=== PATIENT | female | born 1935 | race Two or more races ===

== ENCOUNTER 2018-03-06 12:53 | Inpatient (IN) | payer OTHER ==
[~2018-03-06] VITALS: Ht 157.5 cm; Wt 47.0 kg
[2018-03-06 13:44] LABS: microscopic required? YES; urine erythrocyte TRACE (NEGATIVE)
[2018-03-06 13:45] LABS: BASOPHIL % 0.3 % (0-2); PLATELET COUNT 364 x10^3mcL (130-400); RED CELL DISTRIBUTION WIDTH 12.2 % (11.5-14.5)
[2018-03-06 14:00] LABS: ALBUMIN 3.5 g/dL (3.4-5.0); ALKALINE PHOSPHATASE 87 U/L (46-116); ALT/SGPT 14 U/L (14-59); AST/SGOT 22 U/L (15-37); BILIRUBIN TOTAL 0.8 mg/dL (0.20-1.00); CALCIUM 8.4 mg/dL (8.5-10.1); CARBON DIOXIDE 20.5 mmol/L (21-32); CHLORIDE SERUM 83 mmol/L (98-107); CREATININE SERUM 0.8 mg/dL (0.6-1.0); GLUCOSE SERUM 123 mg/dL (74-106); POTASSIUM SERUM 4.1 mmol/L (3.5-5.1); TOTAL PROTEIN, SERUM 7.8 g/dL (6.4-8.2)
[2018-03-06 14:01] LABS: SODIUM SERUM 115 mmol/L (136-145)
[2018-03-06 14:08] LABS: FREE T4 1.39 ng/dL (0.76-1.46); FREE THYROXINE INDEX 3.3 ug/dL (1.4-4.5); T3 TOTAL 0.78 ng/mL; T4(THYROXINE) 8.9 ug/dL (4.7-13.3)
[2018-03-06] MEDS ORDERED: LOSARTAN POTASS25 M1 PO (16:19)
[2018-03-06] MEDS ORDERED: LEVOTHYROXIN0.025 M2 PO (16:19)
[2018-03-06] MEDS ORDERED: LEVOTHYROXINE0.05 M2 GT (16:19)
[2018-03-06 18:16] VITALS: BP 166/76
[2018-03-06 18:38] VITALS: BP 118/64
[2018-03-06 21:02] LABS: CALCIUM 7.7 mg/dL (8.5-10.1); CARBON DIOXIDE 19.7 mmol/L (21-32); CHLORIDE SERUM 87 mmol/L (98-107); CREATININE SERUM 0.7 mg/dL (0.6-1.0); GLUCOSE SERUM 112 mg/dL (74-106); POTASSIUM SERUM 3.7 mmol/L (3.5-5.1)
[2018-03-06 21:07] LABS: SODIUM SERUM 115 mmol/L (136-145)
[2018-03-06 21:56] VITALS: BP 145/49
[2018-03-07 03:11] LABS: CALCIUM 7.4 mg/dL (8.5-10.1); CARBON DIOXIDE 22.6 mmol/L (21-32); CHLORIDE SERUM 91 mmol/L (98-107); CREATININE SERUM 0.7 mg/dL (0.6-1.0); GLUCOSE SERUM 114 mg/dL (74-106); POTASSIUM SERUM 3.5 mmol/L (3.5-5.1)
[2018-03-07 03:21] LABS: SODIUM SERUM 118 mmol/L (136-145)
[2018-03-07 05:40] VITALS: BP 125/54
[2018-03-07 06:31] LABS: BASOPHIL % 0.3 % (0-2); CALCIUM 8.1 mg/dL (8.5-10.1); CARBON DIOXIDE 18.9 mmol/L (21-32); CHLORIDE SERUM 94 mmol/L (98-107); CREATININE SERUM 0.7 mg/dL (0.6-1.0); GLUCOSE SERUM 91 mg/dL (74-106); MAGNESIUM 1.9 mg/dL (1.8-2.4); PLATELET COUNT 319 x10^3mcL (130-400); POTASSIUM SERUM 3.6 mmol/L (3.5-5.1); RED CELL DISTRIBUTION WIDTH 12.5 % (11.5-14.5)
[2018-03-07 06:45] LABS: SODIUM SERUM 124 mmol/L (136-145)
[2018-03-07 09:37] LABS: CARBON DIOXIDE 20.6 mmol/L (21-32); CHLORIDE SERUM 93 mmol/L (98-107); CREATININE SERUM 0.8 mg/dL (0.6-1.0); GLUCOSE SERUM 135 mg/dL (74-106); POTASSIUM SERUM 3.6 mmol/L (3.5-5.1)
[2018-03-07 09:38] VITALS: BP 133/75
[2018-03-07 09:56] LABS: SODIUM SERUM 122 mmol/L (136-145)
[2018-03-07 13:45] VITALS: BP 147/69
[2018-03-07 17:21] VITALS: BP 146/62
[2018-03-07 21:20] VITALS: BP 139/56
[2018-03-08 05:49] VITALS: BP 156/83
[2018-03-08 06:43] LABS: BASOPHIL % 0.5 % (0-2); PLATELET COUNT 321 x10^3mcL (130-400); RED CELL DISTRIBUTION WIDTH 12.7 % (11.5-14.5)
[2018-03-08 07:08] LABS: CHLORIDE SERUM 98 mmol/L (98-107); CREATININE SERUM 0.8 mg/dL (0.6-1.0); GLUCOSE SERUM 98 mg/dL (74-106); MAGNESIUM 2.2 mg/dL (1.8-2.4); POTASSIUM SERUM 3.9 mmol/L (3.5-5.1); SODIUM SERUM 128 mmol/L (136-145)
[2018-03-08 10:00] VITALS: BP 155/83
[2018-03-08 10:59] VITALS: BP 146/80
[2018-03-08 13:27] VITALS: BP 155/77
[2018-03-08] MEDS ORDERED: CEFDINIR300 M1 PO (13:42)
[2018-03-08] MEDS ORDERED: SOD1 PO (13:42)
[2018-03-08] MEDS ORDERED: NITROFURANTOIN50 MG PO (13:59)
[2018-03-08 14:00] VITALS: BP 155/77
== END 2018-03-08 15:33 | disposition home health service (06) | DRG 640 ==
LOC: ED 12:53 → DU 15:46
PROVIDERS: Emergency Medicine; Internal Medicine Nephrology; Internal Medicine Pulmonary Disease
DX: E87.1 Hypo-osmolality and hyponatremia (principal); G93.41 Metabolic encephalopathy; N39.0 Urinary tract infection, site not specified; I10 Essential (primary) hypertension; E03.9 Hypothyroidism, unspecified; E86.1 Hypovolemia; E86.9 Volume depletion, unspecified; F03.90 Unspecified dementia, unspecified severity, without behavioral disturbance, psychotic disturbance, mood disturbance, and anxiety
CPT/HCPCS: 84439; J0696; J3475; J3490; J7030; J7042; Q0092